=== PATIENT | female | born 1950 | race Caucasian/White ===

== ENCOUNTER 2020-08-20 00:33 | Emergency (ER) | payer MEDICARE ==
[2020-08-20] MEDS ORDERED: Aspirin Chewable 81 MG TAB ONE (01:30)
[2020-08-20 01:31] LABS: #Basophils 0.1 thou/uL (0.0-0.2); #Eosinphils 0.1 thou/uL (0.0-0.7); #Monocytes 0.7 thou/uL (0.11-0.59); #Neutrophils 4.7 thou/uL (1.40-6.50); %Lymphocytes 26.3 % (21.0-51.0); %Monocytes 8.7 % (0.0-10.0); Hemoglobin 15.1 g/dL (12.0-16.0); Mean Corpuscular HGB CONC 31.6 g/dL (32.0-36.0); Mean Corpuscular Hemoglobin 29.2 pg (27.0-31.0); Mean Corpuscular Volume 92.2 fL (78.0-98.0); Mean Platelet Volume 6.6 fL (7.4-10.4); Platelet Count 285 thou/uL (130-400); RBC Distribution Width 13.9 % (11.5-14.5); Red Blood Cell (RBC) Count 5.16 mill/uL (4.20-5.40); White Blood Cell (WBC) Count 7.5 thou/uL (4.8-10.8)
[2020-08-20 01:44] LABS: ALT (SGPT) 17 U/L (8-55); AST (SGOT) 20 U/L (5-34); Albumin 3.5 g/dL (3.4-4.8); Alkaline Phosphatase 78 U/L (40-110); Anion Gap 14 mmol/L (10-20); BUN (Urea Nitrogen) 7 mg/dL (9.8-20.1); Bilirubin, Total 0.3 mg/dL (0.2-1.2); Calc. Creatinine Clearance 0 mL/min (70-130); Carbon Dioxide 27 mmol/L (23-31); Chloride 100 mmol/L (98-107); Globulin 2.9 g/dL (2.4-3.5); Glucose 109 mg/dL (80-115); Lipase 54 U/L (8-78); Potassium 4.1 mmol/L (3.5-5.1); Protein, Total 6.4 g/dL (5.8-8.1); Sodium 137 mmol/L (136-145)
--- NOTE | 2020-08-20 07:59 | RAD ---
PORTABLE CHEST: Date: 08/20/2020 An AP portable film at 0053 hours is compared with the 11/09/2018 study. The heart remains normal in size. There is no congestive change or pleural effusion. The lungs are mi ldly hyperexpanded, but clear. No focal infiltrates of concern were seen. IMPRESSION: No acute findings. POS: HOME
--- NOTE | 2020-08-20 08:53 | CT ---
PRELIMINARY REPORT/[facility]/EMERGENCY AFTER HOURS PROCEDURE: EXAM: CTA Chest, Abdomen and Pelvis with Intravenous Contrast CLINICAL HISTORY: Patient is a 69-year-old female who presents to the emergency department with acute onset chest pain that began 30 minutes prior to arrival while sitting at home playing a game. Patient notes associated shortness of breath, diaphoresis. Patient reports that the pain does radiate to her back. Patient re ports a history of significant cardiac disease with a history of 8 stents and also peripheral vascula r disease with a recent catheterization of her right lower extremity by Dr. Pollack with cardiology. P atient denies fever/chills, nausea vomiting or diarrhea. Patient denies dysuria, urgency or frequency or hematuria. Patient has an abdominal hernia that is nontender, history of lap band procedure. Unique ent has taken 2 tabs of sublingual nitro with resolution of her chest pain. No history of PE or DVT. Patient notes concern with her wound in her groin as it has not healed after procedure from last Mond ay. Patient noted coolness to her right lower extremity over her left since the procedure. TECHNIQUE: Axial CTA images of the chest, abdomen and pelvis with intravenous contrast. Three-dimensional MIP/vo lume rendered reformations were performed. CONTRAST: With; 100ml ISO 370 intravenous. COMPARISON: None provided. FINDINGS: VASCULATURE: AORTA Bilateral common iliac artery stents. No aortic aneurysm. No aortic dissection. PULMONARY ARTERIES The examination is optimized for assessment of the aorta, rather than the pulmonary arteries. No evidence of central or segmental pulmonary embolism is seen. CHEST: Lungs: Incidental 1.1 cm nodule in the right upper lobe (series 2 image 7). Bilateral centrilobular emphyse matous changes. Calcified granuloma within the right middle lobe. 4 mm nodule within the lateral ri ght middle lobe (series 2 image 51). Pleural spaces: No evidence of pneumothorax. No pleural effusion. Heart and mediastinum: Multiple coronary stents. Heart is normal size. No pericardial effusion. ABDOMEN: LIVER Fatty liver. No focal liver lesions. GALLBLADDER AND BILE DUCTS No calcified stone. No ductal dilation. PANCREAS Unremarkable. No ductal dilation. SPLEEN Unremarkable. ADRENAL No mass. Bilateral thickened adrenal limbs. KIDNEYS AND URETERS 3 cm simple cyst at the upper pole of the left kidney and 1.4 cm simple cyst at the midpole of the ri ght kidney. No renal stones or hydronephrosis. STOMACH AND BOWEL No obstruction. No bowel wall thickening. No CT evidence of acute diverticulitis. APPENDIX No CT evidence of appendicitis. PELVIS: URINARY BLADDER Not within field of view. REPRODUCTIVE Not within field of view. PERITONEUM No free fluid. No free air. LYMPH NODES No lymphadenopathy is evident. BONES AND SOFT TISSUES No acute osseous abnormality. Right paramidline abdominal wall hernia containing fat. Hernia defect measures 1.3 cm and near the umbilicus. MISCELLANEOUS Prior lap band procedure. Tubing appears intact. IMPRESSION: 1. There is no evidence for aneurysm or dissection of the thoracic or abdominal aorta. 2. Incidental 1.1 cm right upper lobe pulmonary nodule. Consider further evaluation with PET/CT. A lternatively, short interval follow-up in 3 months could be obtained. ELECTRONICALLY SIGNED BY: Walt Sandoval M.D. Aug 20, 2020 2:28:51 AM [employer] TECHNICIAN This report is intended for review by the ordering physician only, in accordance of law. If you recei ve this report in error, please call [facility] at [phone]. FINAL REPORT CT ANGIO OF THE THORAX AND ABDOMEN: AORTIC DISSECTION PROTOCOL DATE: 08/20/2020. FINDINGS: Spiral CT of the chest and abdomen was done for examination in this patient with chest pain. The tung dy started just above the aortic arch and continued through the bifurcation of the aorta. There is no evidence of aortic dissection or aneurysm. Arteriosclerotic change is present in the aor ta, particularly distally and in the iliac arteries. Stents are seen in each iliac artery. The catracho ac artery, SMA, and SEVERINO all appear to fill appropriately. Both renal arteries feel appropriately. T he coronary arteries fill well bilaterally. The CT of the thorax shows good opacification of the pulmonary arteries with no evidence of embolism. There is no pericardial effusion. There is a low-density area in the region of the interatrial sep everette that has fat density numbers in it. A lipoma here is possible. The patient has a hiatal hernia. The lungs show no acute infiltrate or effusion. There is an 11 mm noncalcified nodule in the right u pper lobe apex. Against a background of emphysematous change, there is further watching or workup. One might follow this more closely than the usual 1-year recommendation. One could even argue for a PET CT depending upon the patient's status otherwise. In addition to this, there is a calcified gran uloma in the right middle lobe. There is a 1 cm pleural-based nodule at the periphery of the left up per lobe and a 5 mm pleural-based nodule at the periphery of the right middle lobe. I am less concer roni about the latter two findings. Beyond the hiatal hernia (and the patient does show some GE reflux) she has had a LEP band which appe ars to be in appropriate position. The liver, spleen, and gallbladder showed no acute findings. The right adrenal gland seems thickened but is difficult to evaluate otherwise. Cysts are seen in the l eft kidney, but no hydronephrosis or stones are seen in either. The bowel shows no distention or wal l thickening. No free air or free fluid was seen. The spine shows some degenerative change. IMPRESSION: 1. No evidence of aortic dissection or aneurysm. No evidence of pulmonary embolism. 2. Several tiny nodules, the most problematic being one in the right upper lobe measuring about 11 m m in size. Further followup is recommended. See above. 3. Area of thickening with fat density between the atria. A lipoma here is possible. 4. Hiatal hernia with gastroesophageal reflux. 5. Left renal cysts. Report in agreement with preliminary reading by [facility]. POS: HOME
== END 2020-08-20 03:39 | disposition short-term general hospital (02) ==
LOC: BURERS 00:33
DX: R91.1 Solitary pulmonary nodule (principal); R07.9 Chest pain, unspecified; E78.5 Hyperlipidemia, unspecified; J44.9 Chronic obstructive pulmonary disease, unspecified; F17.210 Nicotine dependence, cigarettes, uncomplicated; Z79.899 Other long term (current) drug therapy
CPT/HCPCS: 36415; 71045; 71275; 74174; 80053; 83690; 83880; 84484; 85025; 93005

== ENCOUNTER 2021-06-21 11:14 | Emergency (ER) | payer MEDICARE | END 2021-06-21 12:11 | disposition home or self-care (01) | LOC: BURERS 11:14 | DX: H81.399 Other peripheral vertigo, unspecified ear (principal); I73.9 Peripheral vascular disease, unspecified; E78.5 Hyperlipidemia, unspecified; J44.9 Chronic obstructive pulmonary disease, unspecified; F17.210 Nicotine dependence, cigarettes, uncomplicated | CPT/HCPCS: 99283 ==

== ENCOUNTER 2021-08-25 18:50 | Inpatient (IN) | payer MEDICARE ==
[2021-08-25] MEDS ORDERED: Acetaminophen 325 MG TAB PO PRN (19:50)
[2021-08-25] MEDS ORDERED: Acetaminophen 650 MG Suppository PR PRN (19:51)
[2021-08-25] MEDS ORDERED: Senokot S 8.6-50 MG TAB PO PRN (19:53)
[2021-08-25] MEDS ORDERED: Calcium Carbonate 500 MG ChewTAB PO PRN (19:53)
[2021-08-25] MEDS ORDERED: Bisacodyl 5 MG TAB PO PRN (19:54)
[2021-08-25] MEDS ORDERED: Bisacodyl 10 MG SUPP PR PRN (19:54)
[2021-08-25] MEDS ORDERED: Ondansetron PF 4 MG/2 ML Vial IVP PRN (20:00)
[2021-08-25] MEDS ORDERED: Ondansetron ODT 4 MG TAB SL PRN (20:00)
[2021-08-25 20:41] VITALS: BMI 36.3
[2021-08-25] MEDS: HYDROcodone/Acetaminophen 5/325 mg Tablet PO PRN (21:42)
[2021-08-26] MEDS ORDERED: Mometasone/Formoterol 200/5 60 PUFF INH SCH (07:00)
[2021-08-26] MEDS ORDERED: FLU VACC QS2021-22(65YR UP)/PF 240 MCG/0.7 ML SYRINGE IM ONE (09:00)
[2021-08-26] MEDS ORDERED: BEMPEDOIC ACID 180 MG PO SCH (09:00)
[2021-08-26] MEDS: Clopidogrel Bisulfate 75 MG TAB PO SCH (09:56)
[2021-08-26] MEDS: Escitalopram Oxalate 10 mg Tablet PO SCH (09:56)
[2021-08-26] MEDS: Aspirin 81 mg Enteric Coated Tablet PO SCH (09:56)
[2021-08-26] MEDS: Mometasone/Formoterol 200/5 60 PUFF INH SCH (20:55)
[2021-08-26] MEDS: Atorvastatin Calcium 40 MG TAB PO SCH (20:55)
[2021-08-27 07:44] LABS: Bilirubin Negative (Negative); Blood, Urine Small (Negative); Clarity Clear (Clear); Glucose, Urine (Dipstick) Negative (Negative); Ketone, Urine Negative (Negative); Leukocyte Trace (Negative); Nitrite Negative (Negative); Protein, Urine (Dipstick) 30 mg/dL (Neg-Trace); Specific Gravity, Urine 1.025 (1.005-1.030); Urobilinogen 0.2 mg/dL (Less than 2); pH, Urine 5.5 (5.0-9.0)
[2021-08-27 07:53] LABS: RBC/HPF 0-3 HPF (0-3); Squamous Epithelial 0-3 HPF (0-3)
[2021-08-27 07:54] LABS: Bacteria/HPF 1+ HPF (None Seen); Renal Epithelial 0-3 HPF (None Seen)
[2021-08-27 07:55] LABS: Urine Culture Reflex Yes Yes
[2021-08-27] MEDS: Clopidogrel Bisulfate 75 MG TAB PO SCH (09:10)
[2021-08-27] MEDS: Mometasone/Formoterol 200/5 60 PUFF INH SCH ×2 (09:10→20:53)
[2021-08-27] MEDS: Escitalopram Oxalate 10 mg Tablet PO SCH (09:10)
[2021-08-27] MEDS: Aspirin 81 mg Enteric Coated Tablet PO SCH (09:10)
[2021-08-27] MEDS: Atorvastatin Calcium 40 MG TAB PO SCH (20:52)
[2021-08-28] MEDS: HYDROcodone/Acetaminophen 5/325 mg Tablet PO PRN (05:27)
[2021-08-28] MEDS: Mometasone/Formoterol 200/5 60 PUFF INH SCH ×2 (09:31→21:17)
[2021-08-28] MEDS: Aspirin 81 mg Enteric Coated Tablet PO SCH (09:34)
[2021-08-28] MEDS: Clopidogrel Bisulfate 75 MG TAB PO SCH (09:34)
[2021-08-28] MEDS: Escitalopram Oxalate 10 mg Tablet PO SCH (09:34)
[2021-08-28] MEDS: Atorvastatin Calcium 40 MG TAB PO SCH (21:16)
[2021-08-29 05:28] LABS: #Basophils 0.1 thou/uL (0.0-0.2); #Eosinphils 0.2 thou/uL (0.0-0.7); #Lymphocytes 2.1 thou/uL (1.20-3.40); #Neutrophils 7.8 thou/uL (1.40-6.50); %Eosinophils 1.4 % (0.0-10.0); %Lymphocytes 18.7 % (21.0-51.0); Hemoglobin 10.9 g/dL (12.0-16.0); Mean Corpuscular Hemoglobin 27.1 pg (27.0-31.0); Mean Corpuscular Volume 84.8 fL (78.0-98.0); Mean Platelet Volume 6.2 fL (7.4-10.4); Platelet Count 499 thou/uL (130-400); Red Blood Cell (RBC) Count 4.02 mill/uL (4.20-5.40); White Blood Cell (WBC) Count 11.2 thou/uL (4.8-10.8)
[2021-08-29 05:30] LABS: Anion Gap 15 mmol/L (10-20); BUN (Urea Nitrogen) 15 mg/dL (9.8-20.1); Calc. Creatinine Clearance 96 mL/min (70-130); Calcium 9.6 mg/dL (7.8-10.44); Carbon Dioxide 26 mmol/L (23-31); Chloride 104 mmol/L (98-107); Glucose 108 mg/dL (80-115); Potassium 4.9 mmol/L (3.5-5.1); Sodium 140 mmol/L (136-145)
[2021-08-29] MEDS: Clopidogrel Bisulfate 75 MG TAB PO SCH (09:00)
[2021-08-29] MEDS: Mometasone/Formoterol 200/5 60 PUFF INH SCH ×2 (09:00→20:47)
[2021-08-29] MEDS: Escitalopram Oxalate 10 mg Tablet PO SCH (09:00)
[2021-08-29] MEDS: Aspirin 81 mg Enteric Coated Tablet PO SCH (09:00)
[2021-08-29] MEDS: Atorvastatin Calcium 40 MG TAB PO SCH (20:47)
[2021-08-30 00:12] LABS: SARS-CoV-2 PCR by NAA Not Detected (NotDetected)
[2021-08-30] MEDS: Escitalopram Oxalate 10 mg Tablet PO SCH (09:04)
[2021-08-30] MEDS: Aspirin 81 mg Enteric Coated Tablet PO SCH (09:04)
[2021-08-30] MEDS: Clopidogrel Bisulfate 75 MG TAB PO SCH (09:04)
[2021-08-30] MEDS: Mometasone/Formoterol 200/5 60 PUFF INH SCH ×2 (09:05→20:40)
[2021-08-30] MEDS: Atorvastatin Calcium 40 MG TAB PO SCH (20:40)
[2021-08-31] MEDS: Mometasone/Formoterol 200/5 60 PUFF INH SCH ×2 (08:40→19:59)
[2021-08-31] MEDS: Escitalopram Oxalate 10 mg Tablet PO SCH (08:43)
[2021-08-31] MEDS: Aspirin 81 mg Enteric Coated Tablet PO SCH (08:43)
[2021-08-31] MEDS: Clopidogrel Bisulfate 75 MG TAB PO SCH (08:43)
[2021-08-31] MEDS: HYDROcodone/Acetaminophen 5/325 mg Tablet PO PRN (19:57)
[2021-08-31] MEDS: Atorvastatin Calcium 40 MG TAB PO SCH (19:57)
[2021-08-31] MEDS: Nicotine 21 MG PATCH TOP SCH (20:46)
[2021-08-31] MEDS ORDERED: TETANUS, DIPHTHERIA TOX,ADULT (TDVAX) 0.5 ML VIAL IM ONE (21:17)
[2021-09-01] MEDS: Aspirin 81 mg Enteric Coated Tablet PO SCH (10:21)
[2021-09-01] MEDS: Escitalopram Oxalate 10 mg Tablet PO SCH (10:21)
[2021-09-01] MEDS: Mometasone/Formoterol 200/5 60 PUFF INH SCH ×2 (10:21→21:25)
[2021-09-01] MEDS: Clopidogrel Bisulfate 75 MG TAB PO SCH (10:21)
[2021-09-01] MEDS ORDERED: Silver Nitrate Application 1 EACH ONE (12:44)
[2021-09-01] MEDS: Nicotine 21 MG PATCH TOP SCH (21:25)
[2021-09-01] MEDS: Atorvastatin Calcium 40 MG TAB PO SCH (21:25)
[2021-09-02] MEDS: Mometasone/Formoterol 200/5 60 PUFF INH SCH ×2 (09:49→20:14)
[2021-09-02] MEDS: Aspirin 81 mg Enteric Coated Tablet PO SCH (09:50)
[2021-09-02] MEDS: Escitalopram Oxalate 10 mg Tablet PO SCH (09:50)
[2021-09-02] MEDS: Clopidogrel Bisulfate 75 MG TAB PO SCH (09:50)
[2021-09-02] MEDS ORDERED: HYDROcodone/Acetaminophen 5/325 mg Tablet PO PRN (13:23)
[2021-09-02] MEDS: Nicotine 21 MG PATCH TOP SCH (20:15)
[2021-09-02] MEDS: Atorvastatin Calcium 40 MG TAB PO SCH (20:16)
[2021-09-03] MEDS: Clopidogrel Bisulfate 75 MG TAB PO SCH (09:42)
[2021-09-03] MEDS: Aspirin 81 mg Enteric Coated Tablet PO SCH (09:43)
[2021-09-03] MEDS: Mometasone/Formoterol 200/5 60 PUFF INH SCH ×2 (09:43→20:51)
[2021-09-03] MEDS: Escitalopram Oxalate 10 mg Tablet PO SCH (09:43)
[2021-09-03] MEDS: Melatonin 3 MG TAB PO PRN (20:51)
[2021-09-03] MEDS: Nicotine 21 MG PATCH TOP SCH (20:51)
[2021-09-03] MEDS: Atorvastatin Calcium 40 MG TAB PO SCH (20:51)
[2021-09-04] MEDS: Mometasone/Formoterol 200/5 60 PUFF INH SCH ×2 (09:23→21:29)
[2021-09-04] MEDS: Clopidogrel Bisulfate 75 MG TAB PO SCH (09:25)
[2021-09-04] MEDS: Escitalopram Oxalate 10 mg Tablet PO SCH (09:25)
[2021-09-04] MEDS: Aspirin 81 mg Enteric Coated Tablet PO SCH (09:25)
[2021-09-04] MEDS: Nicotine 21 MG PATCH TOP SCH (21:29)
[2021-09-04] MEDS: Atorvastatin Calcium 40 MG TAB PO SCH (21:29)
[2021-09-04] MEDS: Melatonin 3 MG TAB PO PRN (21:29)
[2021-09-05] MEDS: Mometasone/Formoterol 200/5 60 PUFF INH SCH ×2 (10:13→21:41)
[2021-09-05] MEDS: Escitalopram Oxalate 10 mg Tablet PO SCH (10:17)
[2021-09-05] MEDS: Clopidogrel Bisulfate 75 MG TAB PO SCH (10:17)
[2021-09-05] MEDS: Aspirin 81 mg Enteric Coated Tablet PO SCH (10:18)
[2021-09-05 18:45] LABS: SARS-CoV-2 PCR by NAA Not Detected (NotDetected)
[2021-09-05] MEDS: Nicotine 21 MG PATCH TOP SCH (21:40)
[2021-09-05] MEDS: Atorvastatin Calcium 40 MG TAB PO SCH (21:40)
[2021-09-05] MEDS: Melatonin 3 MG TAB PO PRN (21:40)
[2021-09-06] MEDS: Mometasone/Formoterol 200/5 60 PUFF INH SCH ×2 (09:57→22:04)
[2021-09-06] MEDS: Escitalopram Oxalate 10 mg Tablet PO SCH (09:58)
[2021-09-06] MEDS: Clopidogrel Bisulfate 75 MG TAB PO SCH (09:58)
[2021-09-06] MEDS: Aspirin 81 mg Enteric Coated Tablet PO SCH (09:58)
[2021-09-06] MEDS: Melatonin 3 MG TAB PO PRN (22:01)
[2021-09-06] MEDS: Atorvastatin Calcium 40 MG TAB PO SCH (22:01)
[2021-09-06] MEDS: Nicotine 21 MG PATCH TOP SCH (22:01)
[2021-09-07] MEDS: Mometasone/Formoterol 200/5 60 PUFF INH SCH ×2 (08:09→21:22)
[2021-09-07] MEDS: Aspirin 81 mg Enteric Coated Tablet PO SCH (08:10)
[2021-09-07] MEDS: Escitalopram Oxalate 10 mg Tablet PO SCH (08:10)
[2021-09-07] MEDS: Clopidogrel Bisulfate 75 MG TAB PO SCH (08:10)
[2021-09-07] MEDS: Nicotine 21 MG PATCH TOP SCH (21:20)
[2021-09-07] MEDS: Melatonin 3 MG TAB PO PRN (21:20)
[2021-09-07] MEDS: Atorvastatin Calcium 40 MG TAB PO SCH (21:20)
[2021-09-08] MEDS: Mometasone/Formoterol 200/5 60 PUFF INH SCH ×2 (09:13→21:28)
[2021-09-08] MEDS: Aspirin 81 mg Enteric Coated Tablet PO SCH (09:13)
[2021-09-08] MEDS: Clopidogrel Bisulfate 75 MG TAB PO SCH (09:14)
[2021-09-08] MEDS: Escitalopram Oxalate 10 mg Tablet PO SCH (09:14)
[2021-09-08] MEDS: Atorvastatin Calcium 40 MG TAB PO SCH (21:27)
[2021-09-08] MEDS: Nicotine 21 MG PATCH TOP SCH (21:27)
[2021-09-08] MEDS: Melatonin 3 MG TAB PO PRN (21:35)
[2021-09-09] MEDS: Clopidogrel Bisulfate 75 MG TAB PO SCH (09:07)
[2021-09-09] MEDS: Aspirin 81 mg Enteric Coated Tablet PO SCH (09:07)
[2021-09-09] MEDS: Escitalopram Oxalate 10 mg Tablet PO SCH (09:08)
[2021-09-09] MEDS: Mometasone/Formoterol 200/5 60 PUFF INH SCH ×2 (09:08→21:29)
[2021-09-09 18:31] LABS: Bilirubin Negative (Negative); Blood, Urine Moderate (Negative); Clarity Cloudy (Clear); Glucose, Urine (Dipstick) Negative (Negative); Ketone, Urine Negative (Negative); Leukocyte Large (Negative); Nitrite Negative (Negative); Protein, Urine (Dipstick) 30 mg/dL (Neg-Trace); Specific Gravity, Urine 1.015 (1.005-1.030)
[2021-09-09 18:40] LABS: Bacteria/HPF 2+ HPF (None Seen); RBC/HPF 0-3 HPF (0-3); Squamous Epithelial 0-3 HPF (0-3); WBC/HPF Greater Than 50 HPF (0-3)
[2021-09-09 18:41] LABS: Urine Culture Reflex Yes Yes
[2021-09-09] MEDS: Atorvastatin Calcium 40 MG TAB PO SCH (21:28)
[2021-09-09] MEDS: Nicotine 21 MG PATCH TOP SCH (21:28)
[2021-09-09] MEDS: Melatonin 3 MG TAB PO PRN (21:32)
[2021-09-10] MEDS: Escitalopram Oxalate 10 mg Tablet PO SCH (10:21)
[2021-09-10] MEDS: Aspirin 81 mg Enteric Coated Tablet PO SCH (10:21)
[2021-09-10] MEDS: Clopidogrel Bisulfate 75 MG TAB PO SCH (10:21)
[2021-09-10] MEDS: Mometasone/Formoterol 200/5 60 PUFF INH SCH ×2 (10:22→21:20)
[2021-09-10] MEDS: Nicotine 21 MG PATCH TOP SCH (21:20)
[2021-09-10] MEDS: Melatonin 3 MG TAB PO PRN (21:20)
[2021-09-10] MEDS: Atorvastatin Calcium 40 MG TAB PO SCH (21:20)
[2021-09-11] MEDS: Mometasone/Formoterol 200/5 60 PUFF INH SCH ×2 (09:35→20:58)
[2021-09-11] MEDS: Aspirin 81 mg Enteric Coated Tablet PO SCH (09:35)
[2021-09-11] MEDS: Clopidogrel Bisulfate 75 MG TAB PO SCH (09:35)
[2021-09-11] MEDS: Escitalopram Oxalate 10 mg Tablet PO SCH (09:35)
[2021-09-11] MEDS ORDERED: Cefdinir 300 MG CAP PO SCH (11:30)
[2021-09-11] MEDS: Melatonin 3 MG TAB PO PRN (20:58)
[2021-09-11] MEDS: Atorvastatin Calcium 40 MG TAB PO SCH (20:58)
[2021-09-11] MEDS: Cefdinir 300 MG CAP PO SCH (20:58)
[2021-09-11] MEDS: Nicotine 21 MG PATCH TOP SCH (20:58)
[2021-09-12 05:58] VITALS: BP 98/53; TEMP 98.5
[2021-09-12] MEDS: Aspirin 81 mg Enteric Coated Tablet PO SCH (09:50)
[2021-09-12] MEDS: Cefdinir 300 MG CAP PO SCH (09:50)
[2021-09-12] MEDS: Clopidogrel Bisulfate 75 MG TAB PO SCH (09:50)
[2021-09-12] MEDS: Escitalopram Oxalate 10 mg Tablet PO SCH (09:50)
[2021-09-12] MEDS: Mometasone/Formoterol 200/5 60 PUFF INH SCH (09:51)
== END 2021-09-12 16:40 | disposition home health service (06) | DRG 949 ==
LOC: BURMED 18:50
PROVIDERS: ADMIT Family Medicine; ATTEND Family Medicine
DX: T83.511D Infection and inflammatory reaction due to indwelling urethral catheter, subsequent encounter (principal); G37.3 Acute transverse myelitis in demyelinating disease of central nervous system; N39.0 Urinary tract infection, site not specified; G82.20 Paraplegia, unspecified; R53.1 Weakness; R33.9 Retention of urine, unspecified; Z20.822 Contact with and (suspected) exposure to COVID-19; I25.10 Atherosclerotic heart disease of native coronary artery without angina pectoris; J44.9 Chronic obstructive pulmonary disease, unspecified; B96.20 Unspecified Escherichia coli [E. coli] as the cause of diseases classified elsewhere; L89.321 Pressure ulcer of left buttock, stage 1; L89.310 Pressure ulcer of right buttock, unstageable; L89.150 Pressure ulcer of sacral region, unstageable; I73.9 Peripheral vascular disease, unspecified; F17.210 Nicotine dependence, cigarettes, uncomplicated; Z91.048 Other nonmedicinal substance allergy status; Z88.8 Allergy status to other drugs, medicaments and biological substances; Z79.82 Long term (current) use of aspirin; Z79.02 Long term (current) use of antithrombotics/antiplatelets; Z79.899 Other long term (current) drug therapy; Z95.5 Presence of coronary angioplasty implant and graft; Z80.1 Family history of malignant neoplasm of trachea, bronchus and lung; Z82.49 Family history of ischemic heart disease and other diseases of the circulatory system; Z82.5 Family history of asthma and other chronic lower respiratory diseases
CPT/HCPCS: 36415; 80048; 81001; 85025; 87077; 87086; 87186; 90714; 94664; 97602; U0003; U0005